=== PATIENT | male | born 1960 | race Caucasian/White ===

== ENCOUNTER 2021-01-07 10:10 | Outpatient (CLI) | payer OTHER, SELFPAY ==
[2021-01-07 10:44] LABS: Hematocrit 50.5 % (42.0-52.0); Hemoglobin 16.5 g/dL (14.0-18.0); Mean Corpuscular HGB Conc 32.7 g/dl (32-36); Mean Corpuscular Volume 82.8 fl (80-100); Mean Platelet Volume 10.4 fl (7.4-10.4); Platelet Count Result 253 k/mm3 (150-375); Red Cell Distribution Width 16.9 % (11.5-14.5); White Blood Count 6.4 K/mm3 (4.5-10.0)
[2021-01-07 10:57] LABS: Alanine Aminotransferase 38 U/L (4-50); Albumin Level 4.4 g/dL (3.5-5.1); Alkaline Phosphatase 69 U/L (38-126); Anion Gap 8 mmol/L (8-16); Aspartate Amino Transferase 37 U/L (17-59); Bilirubin,Total 0.9 mg/dL (0.2-1.3); Blood Urea Nitrogen 28 mg/dL (9-20); Calcium 9.5 mg/dL (8.4-10.2); Carbon Dioxide 29 mmol/L (22-30); Chloride 100 mmol/L (98-107); Cholesterol 126 mg/dL (0-200); Creatine Kinase 110 U/L (55-170); Estimated Glomerular Filt Rate > 60; Glucose 89 mg/dL (65-110); HDL Direct 29 mg/dL; Potassium 4.7 mmol/L (3.4-5.0); Sodium 137 mmol/L (137-145); Triglycerides 107 mg/dL (<150)
[2021-01-07 11:08] LABS: LDL Cholesterol Direct 76 mg/dL
== END 2021-01-07 10:11 | disposition home or self-care (01) ==
LOC: ANHLAB 10:13
PROVIDERS: PCP Family Medicine; Visit Provider Hospitalist
DX: I25.10 Atherosclerotic heart disease of native coronary artery without angina pectoris (principal)
CPT/HCPCS: 36415; 80053; 80061; 82550; 85027

== ENCOUNTER 2021-07-07 12:20 | Emergency (ER) | payer OTHER, SELFPAY ==
--- NOTE | ~2021-07-07 | CT_ITS ---
EXAMINATION: CT orbit BI wo con DATE: 07/07/2021 14:01 INDICATION: Right eye injury. TECHNIQUE: Computed tomography (CT) of the orbits was performed without intravenous contrast. Automat ed exposure control and iterative reconstruction technique were employed. The dose-length product was 137.44 mGy-cm. COMPARISON: None FINDINGS: In the right ocular globe, there is dislocation of the lens. There is a 2 mm calcification in the anterior right ocular globe. There is a 2 mm subcutaneous calcification in right supraorbital region. There is rightward deviation of the nasal septum. No fracture. There is mild mucosal thickeni ng in the paranasal sinuses. IMPRESSION: 1. Lens dislocation in the right ocular globe. Reviewed, dictated and finalized at location A.
[2021-07-07 12:22] VITALS: BP 154/88; PULSE 108; RESP 20; TEMP 36.6; O2SAT 98
--- NOTE | 2021-07-07 13:22 | ED.EYEPROB ---
HPI - Eye Problem General Chief complaint: Eye Problems <Cheko Edmondson, BARTENDER SERVER - Last Filed: 07/07/21 14:23> Stated complaint: HIT IN THE EYE <Cheko Edmondson BARTENDER SERVER - Last Filed: 07/07/21 14:23> Time Seen by Provider: 07/07/21 12:45 <Cheko Edmondson BARTENDER SERVER - Last Filed: 07/07/21 14:23> History of Present Illness HPI Narrative: 60-year-old male presents to the emergency room for evaluation of a right eye injury. 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 On presentation, patient complains of near total vision loss, with photophobia. Patient states he is able to differentiate between light and dark, but everything else appears blurry in the right eye. <Cheko Edmondson, BARTENDER SERVER - Last Filed: 07/07/21 14:23> Related Data Home medications: Home Medications Medication Instructions Recorded Confirmed atorvastatin 80 mg tablet 80 mg PO DAILY 01/28/20 07/05/21 clonazepam 0.5 mg tablet 0.5 mg PO DAILY 01/28/20 07/05/21 metoprolol succinate 25 mg 25 mg PO DAILY 01/28/20 07/05/21 tablet,extended release 24 hr testosterone cypionate 100 mg/mL 100 mg IM WEEKLY ml 01/28/20 07/05/21 intramuscular oil cyclobenzaprine 10 mg tablet 10 mg PO TID 05/24/21 07/05/21 hydrocodone 5 mg-acetaminophen 325 1 tablet PO Q8H PRN 05/24/21 07/05/21 mg tablet nitroglycerin 0.4 mg sublingual 0.4 mg SUBLINGUAL Q5M PRN 05/24/21 07/05/21 tablet omeprazole 40 mg capsule,delayed 40 mg PO DAILY 05/24/21 07/05/21 release rizatriptan 10 mg tablet 10 mg PO ONCE 05/24/21 07/05/21 scopolamine base 1 mg over 3 days 1 patch TRANSDERMAL Q3D PRN 05/24/21 07/05/21 transdermal patch valacyclovir 1 gram tablet 1,000 mg PO DAILY 05/24/21 07/05/21 <Cheko Edmondson APRN - Last Filed: 07/07/21 14:23> Allergies/adverse reactions: Allergies Allergy/AdvReac Type Severity Reaction Status Date / Time niacin Allergy Intermediate unknown Verified 07/07/21 12:31 <Cheko Edmondson APRN - Last Filed: 07/07/21 14:23> Review of Systems Review of Systems: CONSTITUTIONAL: Denies fever, chills, or sweats. EYES: Right eye pain, visual changes ENT: Denies rhinorrhea, congestion, sore throat, or otalgia. CARDIOVASCULAR: Denies chest pain, palpitations, or edema. RESPIRATORY: Denies cough or dyspnea. GASTROINTESTINAL: Denies abdominal pain, nausea, vomiting, or diarrhea. GENITOURINARY: Denies dysuria or hematuria. SKIN: Denies rash or itching. MUSCULOSKELETAL: Denies back pain, joint pain, or myalgia. NEUROLOGIC: Denies headache, numbness, dizziness, or weakness. PSYCHIATRIC: Denies anxiety or depression. <Cheko Edmondson APRN - Last Filed: 07/07/21 14:23> [facility] Past Medical History Medical History: Medical History BMI 36.0-36.9,adult Degenerative arthritis of knee, bilateral Osteoarthritis of right knee <Cheko Edmondson APRN - Last Filed: 07/07/21 14:23> Surgical History Surgical History: Surgical History H/O knee surgery scope, waiting on records, Dr. 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 HEAD: Normocephal
[2021-07-07] MEDS: FLUORESCEIN SOD 1 MG/STRIP (13:40)
[2021-07-07] MEDS: TETRACAINE HCL 0.5% OPHTH SOLN 4 ML BTL 1 DROP ×2 (13:41)
--- NOTE | 2021-07-07 13:41 | PC.NURSE ---
patient placed in a dark room and gauze placed over right eye, secured with paper tape.
--- NOTE | 2021-07-07 14:17 | PC.NURSE ---
patient refusing ambulance transport to [facility]. ok with Dr. Pelaez for POV
[2021-07-07 14:25] VITALS: BP 159/84; PULSE 104; RESP 18; O2SAT 98
== END 2021-07-07 14:46 | disposition short-term general hospital (02) ==
PROVIDERS: Emergency Provider Nurse Practitioner Family; PCP Family Medicine
DX: S05.11XA Contusion of eyeball and orbital tissues, right eye, initial encounter (principal); M17.0 Bilateral primary osteoarthritis of knee; Z87.891 Personal history of nicotine dependence; W20.8XXA Other cause of strike by thrown, projected or falling object, initial encounter
CPT/HCPCS: 70480; 99284

== ENCOUNTER 2021-07-19 18:58 | Emergency (ER) | payer OTHER, SELFPAY ==
[2021-07-19] VITALS (8 sets, daily range): BP systolic 166–187; BP diastolic 100–111; PULSE 81–93; RESP 12–18; TEMP 36.6; O2SAT 95
--- NOTE | 2021-07-19 19:32 | ED.EYEPROB ---
HPI - Eye Problem General Chief complaint: Eye Problems Stated complaint: right eye pain Time Seen by Provider: 07/19/21 19:24 History of Present Illness HPI Narrative: Patient is as 60 y/o CM who p/w right eye pain and TRUJILLO. Seen here 07/07/21 s/p trauma to the eye. Had a hyphema. Was evaluated at [facility]. Patient can sense light but unable to see otherwise since the injury. Has f/u with retina specialist because they were unable to see the retina. Reports his cornea is from the iris. No open globe. Pt reports intermittent TRUJILLO since the injury. Right side behind the eye. Hurts his forehead as well. Called telecommunications field engineer today, thinks patient poorly communicated eye symptoms. Patient has been taking tobradex, cyclogyl, prednisolone, moxifloxacin, and oflaxacin. reports no change in the appearance of the eye. The pupil is irregular and wide, the sclera is injected, the pupil has also looked cloudy. Related Data Home Medications Medication Instructions Recorded Confirmed atorvastatin 80 mg tablet 80 mg PO DAILY 01/28/20 07/05/21 clonazepam 0.5 mg tablet 0.5 mg PO DAILY 01/28/20 07/05/21 metoprolol succinate 25 mg 25 mg PO DAILY 01/28/20 07/05/21 tablet,extended release 24 hr testosterone cypionate 100 mg/mL 100 mg IM WEEKLY weekly 01/28/20 07/05/21 intramuscular oil (Depo-Testosterone) cyclobenzaprine 10 mg tablet 10 mg PO TID 05/24/21 07/05/21 hydrocodone 5 mg-acetaminophen 325 1 tablet PO Q8H PRN 05/24/21 07/05/21 mg tablet nitroglycerin 0.4 mg sublingual 0.4 mg sublingual Q5M PRN 05/24/21 07/05/21 tablet omeprazole 40 mg capsule,delayed 40 mg PO DAILY 05/24/21 07/05/21 release rizatriptan 10 mg tablet 10 mg PO ONCE 05/24/21 07/05/21 scopolamine base 1 mg over 3 days 1 patch transdermal Q3D PRN 05/24/21 07/05/21 transdermal patch (Transderm-Scop) valacyclovir 1 gram tablet 1,000 mg PO DAILY 05/24/21 07/05/21 (Valtrex) cyclopentolate 1 % RIGHT EYE BID 07/19/21 07/19/21 moxifloxacin 0.5 % RIGHT EYE QID 07/19/21 07/19/21 prednisolone acetate 1 % RIGHT EYE QID 07/19/21 07/19/21 tobramycin-dexamethasone 1 drp RIGHT EYE QID 07/19/21 07/19/21 Allergies Allergy/AdvReac Type Severity Reaction Status Date / Time niacin Allergy Intermediate unknown Verified 07/19/21 19:15 Review of Systems Review of Systems: All systems reviewed & are unremarkable except as noted in HPI and below Constitutional: Constitutional: Denies chills and Denies fever(s) Eyes: Eyes: Denies change in vision and Denies photophobia Comments: right eye pain with tearing. Gastrointestinal: Gastrointestinal: Denies nausea and Denies vomiting Neurologic: Reports headache(s) and Denies numbness PMFSH Past Medical History Medical History BMI 36.0-36.9,adult Degenerative arthritis of knee, bilateral Osteoarthritis of right knee Surgical History Surgical History H/O knee surgery scope, waiting on records, Dr. 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 HEAD: Normocephalic, atraumatic. EYES: Right eye exam with a dilated pupil that is hazy. Sclera injected. Right eye intraocular pressure 55 mmHg. ENT: Mucous membranes moist. EXTREMITIES: Normal range of motion. No edema. SKIN: Warm, dry, no rash. NEURO: Alert and oriented x3. PSYCH: Normal mood and affect. Course Course Emergency Course: Contacted ophtha
[2021-07-19] MEDS: MORPHINE SULFATE (*CRX) 4 MG/ML INJ IV PUSH (19:37)
[2021-07-19] MEDS: HYDROmorphone HCL INJ (*CRX) 1 MG/ML SYR IV PUSH (19:57)
== END 2021-07-19 20:36 | disposition short-term general hospital (02) ==
PROVIDERS: Emergency Provider Emergency Medicine; PCP Family Medicine
DX: H40.9 Unspecified glaucoma (principal); Z87.891 Personal history of nicotine dependence
CPT/HCPCS: 96374; 96375; 99284; J1170; J2270

== ENCOUNTER → 2021-11-09 07:52 | Outpatient (CLI) | payer OTHER, SELFPAY ==
--- NOTE | ~2021-11-09 | MR_ITS ---
EXAMINATION: MR knee RT wo con DATE: 11/09/2021 08:28 INDICATION: Right knee pain TECHNIQUE: Magnetic resonance imaging (MRI) of the right knee was performed without intravenous contr ast. Sequences included axial PD-weighted FS FSE, coronal PD-weighted FSE and PD-weighted FS FSE, sag ittal PD-weighted FSE, and sagittal T2-weighted FS FSE. COMPARISON: 05/20/2021. FINDINGS: Medial compartment: Complex tear of the medial meniscal body, with vertical and apical components, medial displacement of the meniscus, with displacement of meniscal tissue into both the superior and inferior aspects of th e medial joint recess. Full-thickness cartilage loss in the medial compartment. 5 mm osteochondral le pepe on the medial femoral condyle with considerable surrounding edema. Mild osteophytosis. Lateral compartment: Meniscus intact. Partial-thickness cartilage signal abnormality. Moderate osteophytosis. Patellofemoral compartment: Near full-thickness cartilage loss on the lateral facet. Moderate osteophytosis. Retinacula intact. Ligaments and tendons: Mild thickening of the proximal fibers of the MCL, likely mild chronic partial tear. ACL, PCL, and LC L are intact. Fluid: Moderate volume joint fluid. Numerous loose bodies present in the suprapatellar recess as well as pos terior joint recesses. Cystic collection, possibly associated with the articulation of the fibular he ad, with loose bodies. Osseous/other: Medial tibial plateau sclerosis. Proximal tibial subchondral cysts. IMPRESSION: 1. Complex tear of the body of the medial meniscus, with meniscal extrusion, and displacement of meni scal tissue into the superior and inferior joint recesses. 2. Tricompartmental osteophytosis, severe in the medial compartment, where there is full-thickness ca rtilage loss, an osteochondral lesion, and bone marrow edema. 3. Moderate joint effusion with numerous loose bodies. Reviewed, dictated and finalized at location K. IMPRESSION: 1. Complex tear of the body of the medial meniscus, with meniscal extrusion, an d displacement of meniscal tissue into the superior and inferior joint recesses . 2. Tricompartmental osteophytosis, severe in the medial compartment, where ther e is full-thickness cartilage loss, an osteochondral lesion, and bone marrow ed kenia. 3. Moderate joint effusion with numerous loose bodies.
== END ==
PROVIDERS: PCP Orthopaedic Surgery; Visit Provider Orthopaedic Surgery
DX: M17.11 Unilateral primary osteoarthritis, right knee (principal); S83.231A Complex tear of medial meniscus, current injury, right knee, initial encounter; X58.XXXA Exposure to other specified factors, initial encounter
CPT/HCPCS: 73721

== ENCOUNTER 2022-05-01 07:59 | Outpatient (CLI) | payer OTHER, SELFPAY ==
[2022-05-01 09:57] LABS: Basophils Percent Auto 0.6 % (0.2-1.2); Eosinophils Absolute Auto 0.1 K/mm3 (0-0.3); Hematocrit 50.6 % (42.0-52.0); Hemoglobin 16.8 g/dL (14.0-18.0); Immature Granulocyte Absolute 0.05 K/mm3 (0.00-0.031); Immature Granulocyte Percent A 0.8 % (0-0.5); Lymphocytes Percent Auto 29.1 % (18.3-44.2); Mean Corpuscular HGB Conc 33.2 g/dl (32-36); Mean Corpuscular Volume 81.4 fl (80-100); Mean Platelet Volume 10.2 fl (7.4-10.4); Monocytes Absolute Auto 0.8 K/mm3 (0.1-0.6); Neutrophils Absolute Auto 3.6 K/mm3 (1.3-6.7); Neutrophils Percent Auto 55.5 % (45.5-73.1); Platelet Count Result 233 k/mm3 (150-375); Red Blood Count 6.22 M/mm3 (4.6-6.20); Red Cell Distribution Width 14.6 % (11.5-14.5); White Blood Count 6.5 K/mm3 (4.5-10.0)
[2022-05-01 10:06] LABS: Urine Cotinine NEGATIVE
[2022-05-01 10:08] LABS: Hemoglobin A1C 5.7 % (<5.7)
[2022-05-01 10:09] LABS: Albumin Level 4.4 g/dL (3.5-5.1); Estimated Glomerular Filt Rate > 60; Glucose 97 mg/dL (65-110)
== END 2022-05-01 08:00 | disposition home or self-care (01) ==
PROVIDERS: PCP Family Medicine; Visit Provider Orthopaedic Surgery
DX: M17.11 Unilateral primary osteoarthritis, right knee (principal); Z01.818 Encounter for other preprocedural examination
CPT/HCPCS: 80307; 82040; 82565; 82947; 83036; 85025; 86850; 86900; 86901; 87081

== ENCOUNTER 2022-05-08 01:31 | Day surgery (SDC) | payer OTHER, SELFPAY ==
--- NOTE | 2022-05-01 07:42 | PC.NURSE ---
PRE-OP INSTRUCTIONS, PLEASE READ CAREFULLY Report to the Outpatient Waiting Room, entrance under the green pavilion located off [facility], at time _0830_ on date _05/08/22_. Planned Procedure Time: _1030_. PACK A SMALL OVERNIGHT BAG AND LEAVE IN THE CAR ALONG WITH YOUR WALKER Time changes happen often and if your time is changed the preop area will call you the afternoon before. - You and your visitor will be asked to self-screen and do not enter if you have any COVID symptoms. - Only one visitor is requested with a max of two and NO children visitors are allowed at this time. - The patient visitor may be requested to leave or wait in car when not with patient due to distancing restrictions. - A mask is optional within the hospital at this time. -VISITING HOURS 8AM-8PM Patients may have clear liquids (water, carbonated beverages, clear teas, apple juice) until 3 hours prior to surgery (0730 AM) with a maximum of 20 ounces. - No food from midnight until time of surgery Take the following medications with a SIP of water the morning of surgery: _METOPROLOL, & NITROGLYCERIN, RIZATRIPTAN, PAIN MED IF NEEDED_ DO NOT STOP ANY OF YOUR OTHER PRESCRIPTION MEDICATIONS PRIOR TO SURGERY ?EXCEPT THE FOLLOWING Medications to discontinue _MELOXICAM PER DR. ROONEY'S INSTRUCTIONS_ Medications to discontinue per ANESTHESIA - _MULTIVITAMIN 3 DAYS PRIOR TO SURGERY, Date to take last dose 05/04/22_ Please no make-up, nail wolof, hairspray, perfume, deodorant, or body powder the day of surgery. No jewelry (including any body piercings) or valuables the day of surgery, leave them at home. Please take a shower or bath the night before, or the morning of, surgery with an antibacterial soap. Wear comfortable, loose fitting clothing. - Jewelry must be removed prior to entering the operating room. Rings and piercings that are not removed may be cut off. - The hospital will not accept responsibility for valuables. - Please leave all valuables, including medications, at home the day of surgery. If you are going home after surgery, a licensed day haul or farm charter bus driver must drive you home. - NO public transportation without another adult if you receive anesthesia. - We recommend that an adult stay with you for 24 hours following discharge. - We also recommend that you do not drive, make important decision, drink alcoholic beverages, or take any drugs that were not prescribed by your health care provider for at least 24 hours after your discharge time. Follow any additional instructions given to you from your surgeon. If you or anyone in your household have experienced Covid symptoms in the past week, please notify your surgeon or the nurse liaison at the phone number below for possible testing. Instructions given to _PATIENT_and asked if any additional questions and then verbalized understanding. Patient advised to call surgeon office or pre surgery nurse liaison [phone] if any additional questions.
[2022-05-01 08:34] VITALS: BP 142/90; PULSE 78; RESP 20; TEMP 37.1; O2SAT 99; BMI 36.8
[2022-05-08] VITALS (13 sets, daily range): BP systolic 134–166; BP diastolic 80–99; PULSE 78–105; RESP 10–18; TEMP 36.1–37.5; O2SAT 93–100
--- NOTE | ~2022-05-08 | XR_ITS ---
EXAMINATION: [id number] DATE: 05/08/2022 10:38 INDICATION: Postoperative evaluation following right total knee arthroplasty. TECHNIQUE: Anteroposterior and lateral views of the right knee were obtained. COMPARISON: None. FINDINGS: Right total knee arthroplasty with patellar resurfacing appears well seated and in near anatomic alig nment. No fractures identified. Expected postoperative subcutaneous and intra-articular gas. IMPRESSION: 1. Right total knee arthroplasty, negative for postoperative purposes. Reviewed, dictated and finalized at location A.
[2022-05-08] MEDS: ACETAMINOPHEN 500 MG TABLET 1000 MG PO (06:43)
[2022-05-08] MEDS: TRANEXAMIC ACID 1,000MG/ISO100 1,000 MG/100 ML BAG 200 MG IVPB (07:15)
[2022-05-08] MEDS: LACTATED RINGERS 1,000 ML 30 ML IV CONT ×2 (07:15→10:06)
--- NOTE | 2022-05-08 07:17 | WPDHPUPDATE1 ---
History and Physical Update Update Date/Time: 05/08/22 07:17 History and Physical has been reviewed, including an updated exam of the patient. There are NO changes in the patient's condition. Risks, benefits, and alternatives have been discussed and questions answered. Patient agrees to proceed with procedure.
--- NOTE | 2022-05-08 07:23 | WPDANESEPPF ---
Anes - Initial Pre Proc Eval Procedure: Operation Date: 05/08/22 07:30 Proposed Procedures p Right Total Knee Arthroplasty - Aly Mary MD Date/Time: 05/08/22 07:23 Surgeon: Aly Mary MD Pre Op Diagnosis: oa of right knee Patient Data Age: 61 Gender: M Height: 1.75 m Weight: 112 kg Last Vital Signs Temp 36.4 C L 05/08/22 06:47 Pulse 78 05/08/22 06:47 Resp 16 05/08/22 06:47 BP 159/93 H 05/08/22 06:47 Pulse Ox 96 05/08/22 06:47 O2 Del Method Room Air 05/08/22 06:47 Allergies Allergy/AdvReac Type Severity Reaction Status Date / Time niacin Allergy Intermediate ITCHEY, Verified 05/08/22 06:30 TINGLIEY, FLUSHED RED HEAD TO TOE Home Medications Medication Instructions Recorded Confirmed Type atorvastatin 80 mg tablet 80 mg PO DAILY 01/28/20 05/08/22 History clonazepam 0.5 mg tablet 1.5 mg PO HS 01/28/20 05/08/22 History metoprolol succinate 25 mg 25 mg PO DAILY 01/28/20 05/08/22 History tablet,extended release 24 hr testosterone cypionate 100 mg/mL See Rx Instructions .Route .COMPLEX 01/28/20 05/08/22 History intramuscular oil (Depo-Testosterone) hydrocodone 5 mg-acetaminophen 325 1 tablet PO Q8H PRN Pain 05/24/21 05/02/22 History mg tablet nitroglycerin 0.4 mg sublingual 0.4 mg sublingual Q5M PRN Chest 05/24/21 05/08/22 History tablet Pain omeprazole 40 mg capsule,delayed 40 mg PO DAILY 05/24/21 05/08/22 History release rizatriptan 10 mg tablet 10 mg PO ONCE PRN Migraine Headache 05/24/21 05/02/22 History scopolamine base 1 mg over 3 days 1 patch transdermal Q3D PRN Nausea 05/24/21 05/02/22 History transdermal patch (Transderm-Scop) valacyclovir 1 gram tablet 1,000 mg PO DAILY PRN Cold Sores 05/24/21 05/02/22 History (Valtrex) meloxicam 15 mg tablet 15 mg PO DAILY PAIN 01/25/22 05/08/22 History pregabalin 75 mg capsule (Lyrica) 150 mg PO HS 01/25/22 05/08/22 History acetaminophen 500 mg tablet 1,000 mg PO QID PRN Pain 05/01/22 05/08/22 History ascorbic acid (vitamin C) 1,000 mg 1 g PO DAILY 05/01/22 05/08/22 History tablet (Vitamin C) cyclobenzaprine 10 mg tablet 10 mg TID PRN Muscle Spasm 05/01/22 05/08/22 History multivitamin 1 tablet PO DAILY 05/01/22 05/08/22 History rivaroxaban 10 mg tablet (Xarelto) 10 mg PO DAILY PE prophylaxis s/p 05/02/22 05/08/22 Rx joint replacement surgery 14 days #14 tabs Patient hx anesthesia problems: none Family hx anesthesia problems: none Results Review: All pre-operative results and documents have been reviewed as part of the pre-operative evaluation. [facility] Past Medical History Medical History BMI 36.0-36.9,adult Degenerative arthritis of knee, bilateral Osteoarthritis of right knee Surgical History Surgical History H/O eye surgery right lens implant after traumatic injury July 2021 H/O knee surgery scope, waiting on records, Dr. Mary Family History Family History Mother Family history of diabetes mellitus in first degree relative Diabetes mellitus Cerebrovascular accident Social History Social History Smoking packs per day: 0.5 Smoking cigarettes per day: 10.0 Years smoked: 4 Smoking pack-years: 2.00 Smoking status: Former smoker Tobacco type: cigarettes Second hand tobacco smoke exposure: No Additional smoking assessment comments: PT STAETS QUIT SMOKING 7TH GRADE, DENIES FORMS OF TOBACCO USE Alcohol intake: never Substance use: never Substance use type: does not use Living arrangements: with family Occupation/Education: occupation 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
[2022-05-08] MEDS: ceFAZolin 2 GM/D5W 50 ML 2 GM/50 ML BAG IVPB ×3 (07:28→22:03)
[2022-05-08] MEDS: GENTAMICIN BONE CEMENT REFOBACIN 1 EACH TOPICAL (08:07)
--- NOTE | 2022-05-08 10:09 | P.OP_ITS ---
Procedure Note - Detailed Date of Procedure 05/08/22 Pre-op Diagnosis oa of right knee Post-op Diagnosis Same Procedure Performed Right total knee replacement Surgeon Aly Mary MD [employer] General Supervisor Debbie Howe Anesthesia General Description of Procedure The patient was identified and proper site identified. The patient was taken to the operating room and transferred to the OR table positioning supine taking care to pad the torso and extremities. After general anesthetic induction and intubation a nonsterile tourniquet was placed high on the right thigh. The right lower extremity was prepped and draped in the usual sterile fashion. The extremity was exsanguinated and with the knee flexed tourniquet was inflated to 300 mmHg remaining up for approximately 70 minutes. An anterior midline incision was made and a modified medial parapatellar approach was used. Infra and suprapatellar fat pads were excised. Patella was resected leaving 15 mm thickness and prepared for the 31 round three peg component. Using the intramedullary guide the distal femur was cut in the proper orientation for the size 70 femoral component. Using the extramedullary guide the tibia was cut perpendicular to the long axis protecting collateral ligaments and popliteal structures. It was sized to a 75. Flexion and extension gaps were balanced. Trial reduction was undertaken and the weight-bearing line was noted to passed through the center of the joint. Proximal tibia was drilled and punched in the proper orientation for the real component. Trial components were removed. The bone surfaces were washed with pulsatile lavage and dried. The real components were cemented simultaneously. The knee was held in extension and the patella held clamped until the cement had cured. Excess cement was removed from the joint. After trialing it was determined that the 12 mm insert gave full range of motion from 0-120 degrees of flexion and the patella tracked in the femoral groove with no lift-off. After final lavage the joint the real size 12 poly insert was placed and secured with a locking bar. A Betadine and saline wash was placed into the wound and allowed to sit for approximately 3 minutes and then evacuated. Periarticular tissues were infiltrated with 60 cc of the arthroplasty solution. Surgicel powder was applied into the wound during the closure. The extensor mechanism was repaired with #2 Vicryl suture and 0 looped PDS suture. Subcu was reapproximated with 3-0 Monocryl, 2-0 Quill and tissue adhesive for the skin. A sterile dressing was applied. He tolerated the procedure well, was awakened and extubated, transferred to the bed and was taken to recovery area in stable condition. There were no known intraoperative complications. Perioperative antibiotics were administered. Estimated Blood Loss 200 Tourniquet Time 70 Drains No Packing No Pathology None sent Complications No immediate complications Condition Stable Disposition PACU [facility] Billing Surgery - Charge Forward: Surgery Billing ([id number])
[2022-05-08] MEDS: HYDROmorphone HCL INJ (*CRX) 1 MG/ML SYR 0.5 MG IV PUSH ×4 (10:47→11:18)
[2022-05-08] MEDS: LABETALOL HCL INJ 100 MG/20 ML VIAL 10 MG IV PUSH (11:35)
--- NOTE | 2022-05-08 11:48 | ADMGEN ---
This patient, Gurjit Angel, was admitted to 3 [facility] Surg Room 319-01. Patient/family oriented to hospital policies and general routines including ID bracelet, bed and alarms, visiting hours, pain management, procedures, bathroom and other care routines, personal items, smoking policy, room service/diet, and visiting hours. Information on how to activate the Rapid Response Team has been discussed. Patient/Family are encouraged to report perceived risks to care and to ask questions if they do not understand what they are told or what they should do.
[2022-05-08] MEDS: ONDANSETRON INJ 4 MG/2 ML VIAL IV PUSH ×3 (12:45→22:06)
[2022-05-08] MEDS: oxyCODONE/ACETAMINOPHEN (*CRX) 5-325 MG TABLET 1 TABLET PO ×3 (13:41→22:01)
--- NOTE | 2022-05-08 14:18 | PM.IMCN ---
Assessment and Plan Assessment and plan (1) S/P total knee arthroplasty: Code(s): Z96.659 - Presence of unspecified artificial knee joint Status: Acute Assessment and Plan: Postop care per orthopedic physician PT OT per orthopedic physician DVT prophylaxis per orthopedic physician the patient is on Xarelto Analgesics per orthopedic physician. The patient is on oxycodone however the patient is quite nauseated. He is on Zofran and scopolamine patch for the nausea. His IV fluids were restarted due to the nausea. (2) Chronic GERD: Code(s): K21.9 - Gastro-esophageal reflux disease without esophagitis Status: Acute Assessment and Plan: Patient will need IV Pepcid at this time (3) Hypertension: Code(s): I10 - Essential (primary) hypertension Status: Acute Assessment and Plan: Continue with metoprolol (4) Anxiety: Code(s): F41.9 - Anxiety disorder, unspecified Status: Acute Assessment and Plan: The patient had been on clonazepam. I placed him on IV Ativan as the patient was nauseated Plan Thank you for allowing us to see this patient. We will continue to co- manage the patient. Please do not hesitate to notify us if needed. HPI Data of Consult Consult date: 05/08/22 Requesting Physician: Aly Mary MD Primary Care Provider: Russell Patterson, Consult Narrative Narrative: Gurjit Angel is a 61 year old male who continued to have anterior, medial, and posterior knee pain to the right knee. The pain was worse with activity. The patient has failed outpatient conservative treatment options. The patient has had arthroscopic surgeries in the past. The patient had a right total knee arthroplasty today per Dr. Mary. Please see operative note. Estimated blood loss is 200 mL. The patient was sitting up in the chair when I saw him he was complaining a postop nausea. A scopolamine patch had been placed. The hospitalist group add been asked to consult for medical management on the date of service of 05/08/2022. Review of Systems Review of Systems: All systems reviewed & are unremarkable except as noted in HPI and below Constitutional: Constitutional: Reports as per HPI and Reports no additional constitutional complaints Eyes: Eyes: Reports as per HPI and Reports no additional eye complaints ENT: Reports system reviewed and no additional complaints, except as documented and Reports Normal hearing present Cardiovascular: Cardiovascular: Reports no additional cardiovascular complaints Respiratory: Respiratory: Reports no additional respiratory complaints and Reports no additional respiratory complaints Gastrointestinal: Gastrointestinal: Reports as per HPI and Reports no additional gastrointestinal complaints Musculoskeletal: Musculoskeletal: Reports no additional musculoskeletal complaints Integumentary/Breasts: Skin/Breast: Reports system reviewed and no additional complaints, except as docu and Reports as per HPI Neurologic: Reports system reviewed and no additional complaints, except as documented, Reports as per HPI and Reports Normal hearing present Psychiatric: Psychiatric: Reports no additional psychiatric complaints and Reports as per HPI Endocrine: Endocrine: Reports no additional endocrine complaints Hematologic/Lymphatic: Hematologic/Lymphatic: Reports no additional hematologic/lymphatic complaints Allergic/Immunologic: Allergic/Immunologic: Reports no additional allergic/immunologic complaints PMFSH Past Medical History Medical History Anxiety BMI 36.0-36.9,adult Chronic GERD Degenerative arthritis of knee, bilateral Hypertension Osteoarthritis of right knee Surgical History Surgical History (Updated 05/08/22 @ 18:57 by Emerita Franz NP) H/O eye surgery right lens implant after traumatic injury July 2021 H/O heart artery stent H/O knee surgery scope,
[2022-05-08] MEDS: SCOPOLAMINE 1.5 MG PATCH 1 MG TRANSDERM (14:27)
[2022-05-08] MEDS: SODIUM CHLORIDE 0.9% IV 1,000 ML 125 ML IV CONT (15:14)
[2022-05-08] MEDS: MORPHINE SULFATE (*CRX) 4 MG/ML INJ 3 MG IV PUSH ×2 (18:08→21:58)
[2022-05-08] MEDS: PREGABALIN (*CRX) 75 MG CAPSULE 150 MG PO (22:00)
[2022-05-08] MEDS: FAMOTIDINE 20 MG/2 ML VIAL IV PUSH (22:02)
[2022-05-09 00:43] VITALS: BP 124/79; PULSE 110; RESP 19; TEMP 36.5; O2SAT 95
[2022-05-09] MEDS: oxyCODONE/ACETAMINOPHEN (*CRX) 5-325 MG TABLET 1 TABLET PO ×2 (04:47→08:49)
[2022-05-09 05:25] VITALS: BP 151/89; PULSE 96; RESP 18; TEMP 36.4; O2SAT 100
[2022-05-09 06:34] LABS: Basophils Percent Auto 0.1 % (0.2-1.2); Hematocrit 40.2 % (42.0-52.0); Hemoglobin 13.2 g/dL (14.0-18.0); Immature Granulocyte Absolute 0.04 K/mm3 (0.00-0.031); Immature Granulocyte Percent A 0.3 % (0-0.5); Lymphocytes Absolute Auto 1.01 K/mm3 (0.9-3.2); Lymphocytes Percent Auto 8.1 % (18.3-44.2); Mean Corpuscular HGB Conc 32.8 g/dl (32-36); Mean Corpuscular Hemoglobin 27.2 pg (26-34); Mean Corpuscular Volume 82.7 fl (80-100); Mean Platelet Volume 10.8 fl (7.4-10.4); Monocytes Absolute Auto 1.5 K/mm3 (0.1-0.6); Neutrophils Absolute Auto 9.9 K/mm3 (1.3-6.7); Neutrophils Percent Auto 79.5 % (45.5-73.1); Platelet Count Result 207 k/mm3 (150-375); Red Blood Count 4.86 M/mm3 (4.6-6.20); White Blood Count 12.4 K/mm3 (4.5-10.0)
[2022-05-09 06:47] LABS: Alanine Aminotransferase 55 U/L (6-50); Albumin Level 3.5 g/dL (3.5-5.1); Alkaline Phosphatase 66 U/L (38-126); Anion Gap 5 mmol/L (8-16); Aspartate Amino Transferase 37 U/L (17-59); Bilirubin,Total 0.6 mg/dL (0.2-1.3); Blood Urea Nitrogen 17 mg/dL (9-20); Calcium 7.9 mg/dL (8.4-10.2); Carbon Dioxide 26 mmol/L (22-30); Chloride 106 mmol/L (98-107); Estimated CRCL calculation 104 ml/min; Estimated Glomerular Filt Rate > 60; Glucose 130 mg/dL (65-110); Lipase 37 U/L (23-300); Magnesium 1.9 mg/dL (1.6-2.3); Potassium 3.7 mmol/L (3.4-5.0); Sodium 137 mmol/L (137-145)
[2022-05-09] MEDS: ceFAZolin 2 GM/D5W 50 ML 2 GM/50 ML BAG IVPB (07:11)
[2022-05-09 07:36] LABS: Thyroid Stimulating Hormone Reflex 0.992 uIU/mL (0.465-4.68)
--- NOTE | 2022-05-09 07:41 | WPDANESPN ---
Anes - Prog Note Post-Op Date/Time: 05/09/22 07:41 Cardiovascular status: normal Respiratory status: normal Airway patency: baseline Mental status: baseline Post-Op hydration status: normal Vital Signs: Last Vital Signs Temp 36.4 C L 05/09/22 05:25 Pulse 96 05/09/22 05:25 Resp 18 05/09/22 05:25 BP 151/89 H 05/09/22 05:25 Pulse Ox 100 05/09/22 05:25 O2 Del Method Room Air 05/08/22 13:31 O2 Flow Rate 2 05/08/22 11:35 Pain Score (VAS): 03/31 I/O: Intake & Output 05/08/22 05/08/22 05/09/22 15:59 23:59 07:59 Intake Total 818 167 5866 Output Total 400 Balance 400 -180 1800 Laboratory Tests 05/09/22 06:14 05/09/22 06:14 05/09/22 05/09/22 05/09/22 06:14 06:14 06:14 WBC 12.4 H RBC 4.86 Hgb 13.2 L D Hct 40.2 L MCV 82.7 MCH 27.2 MCHC 32.8 RDW 15.0 H Plt Count 207 MPV 10.8 H Immature Gran % (Auto) 0.3 Neut % (Auto) 79.5 H Lymph % (Auto) 8.1 L [place] % (Auto) 12.0 H Eos % (Auto) 0.0 Baso % (Auto) 0.1 L Lymph # (Auto) 1.01 [place] # (Auto) 1.5 H Eos # (Auto) 0.0 Baso # (Auto) 0.0 Abs Immat Gran (auto) 0.04 H Absolute Neuts (auto) 9.9 H Absolute Nucleated RBC 0.0 Nucleated RBC % 0.0 Sodium 137 Potassium 3.7 Chloride 106 Carbon Dioxide 26 Anion Gap 5 L BUN 17 D Creatinine 0.80 Estim Creat Clear Calc 104 Estimated GFR > 60 Glucose 130 H Lactic Acid 2.0 Calcium 7.9 L Magnesium 1.9 Total Bilirubin 0.6 AST 37 ALT 55 H Alkaline Phosphatase 66 Total Protein 6.0 L Albumin 3.5 Lipase 37 TSH (Reflex) 05/09/22 06:14 WBC RBC Hgb Hct MCV MCH MCHC RDW Plt Count MPV Immature Gran % (Auto) Neut % (Auto) Lymph % (Auto) [place] % (Auto) Eos % (Auto) Baso % (Auto) Lymph # (Auto) [place] # (Auto) Eos # (Auto) Baso # (Auto) Abs Immat Gran (auto) Absolute Neuts (auto) Absolute Nucleated RBC Nucleated RBC % Sodium Potassium Chloride Carbon Dioxide Anion Gap BUN Creatinine Estim Creat Clear Calc Estimated GFR Glucose Lactic Acid Calcium Magnesium Total Bilirubin AST ALT Alkaline Phosphatase Total Protein Albumin Lipase TSH (Reflex) 0.992 Post-procedural complaints: none Patient Feedback: Patient satisfied with anesthetic care.
--- NOTE | 2022-05-09 07:42 | PC.NURSE ---
PT [place], exhibited anxiety with all care. Explanation of care , plan of care given. Pain meds, zofran, HOB elevated- no further N/V tolerated liquids, food. SL IVF 0200. Refused one dose of oxy. Up to bathroom- void, not measured, refused to use urinal. use of gait belt, walker - tolerated well. ice to r knee neuros intact all shift.. changed r knee drsg . Pt states poor sleep during night. Monitor.
[2022-05-09] MEDS: SENNA/DOCUSATE SODIUM TABLET 2 TAB PO (08:48)
[2022-05-09] MEDS: MULTIVITAMINS THERAPEUTIC TAB (*BKC) 1 TABLET PO (08:49)
[2022-05-09] MEDS: MELOXICAM 7.5 MG TABLET 15 MG PO (08:49)
[2022-05-09] MEDS: ATORVASTATIN 40 MG TABLET 80 MG PO (08:50)
[2022-05-09 08:51] VITALS: PULSE 96
[2022-05-09] MEDS: RIVAROXABAN 10 MG TABLET PO (08:51)
[2022-05-09] MEDS: polyethylene glycoL 3350 17 GM POWD.PACK PO (08:51)
[2022-05-09] MEDS: ASCORBIC ACID 500 MG TABLET 1000 MG PO (08:51)
[2022-05-09] MEDS: METOPROLOL SUCCINATE EXT REL 25 MG TABCR PO (08:51)
[2022-05-09] MEDS: FAMOTIDINE 20 MG/2 ML VIAL IV PUSH (08:52)
--- NOTE | 2022-05-09 08:52 | PM.DS ---
DS: Admitting Diagnosis Discharge Date 05/09/2022 Admitting Diagnosis Right knee osteoarthritis DS: Discharge Diagnosis Discharge Diagnosis (1) S/P total knee arthroplasty: Code(s): Z96.659 - Presence of unspecified artificial knee joint Status: Acute Plan 61-year-old male postop day 1 after right total knee. He was struggling with a bit of nausea and vomiting yesterday. Is doing much better this morning and had oxycodone this morning for pain without issue. Plan to be seen by therapy again today prior to discharge. We will also call him in a prescription of Zofran for nausea at home. He would like to be discharged today. He has a scheduled follow-up appointment in our office in 2 weeks. He will call our office with any further questions or concerns prior to that scheduled follow-up. DS: Summary Hospital Course Reason for hospitalization: Observation after outpatient procedure Hospital Course: 61-year-old male admitted for observation after right total knee arthroplasty. He did have some nausea and vomiting yesterday when attempting to get more active. Doing much better this morning. He will continue to mobilize with his walker today prior to discharge. Status at Discharge Functional status at discharge: uses cane/walker Overall status at discharge: patient is progressing back to baseline Time Spent with Patient Time attestation: Total time spent providing and/or coordinating discharge services: Time spent: Less than 30 minutes Exam Const: General: comfortable and no acute distress HENMT: Mouth: Yes moist mucous membranes Resp: Effort & Inspection: normal respiratory effort GI: Inspection: non-distended Skin: General skin exam: normal color and no erythema Neuro: Sensory Exam: normal sensation Extrem: Other: Exam of the right lower extremity demonstrates a clean and dry island dressing over the surgical incision of the right knee. No erythema. No sign of drainage. He is able to plantar and dorsiflex the foot without difficulty. Calves negative. Neurovascular status right lower extremity intact. Psych: Mental Status: mental status grossly normal DS: Data Data Completed and Pending Labs on day of discharge: Labs from last 24 hours 05/09/22 05/09/22 05/09/22 06:14 06:14 06:14 WBC RBC Hgb Hct MCV MCH MCHC RDW Plt Count MPV Immature Gran % (Auto) Neut % (Auto) Lymph % (Auto) [place] % (Auto) Eos % (Auto) Baso % (Auto) Lymph # (Auto) [place] # (Auto) Eos # (Auto) Baso # (Auto) Abs Immat Gran (auto) Absolute Neuts (auto) Absolute Nucleated RBC Nucleated RBC % Sodium 137 Potassium 3.7 Chloride 106 Carbon Dioxide 26 Anion Gap 5 L BUN 17 D Creatinine 0.80 Estim Creat Clear Calc 104 Estimated GFR > 60 Glucose 130 H Lactic Acid 2.0 Calcium 7.9 L Magnesium 1.9 Total Bilirubin 0.6 AST 37 ALT 55 H Alkaline Phosphatase 66 Total Protein 6.0 L Albumin 3.5 Lipase 37 TSH (Reflex) 0.992 05/09/22 06:14 WBC 12.4 H RBC 4.86 Hgb 13.2 L D Hct 40.2 L MCV 82.7 MCH 27.2 MCHC 32.8 RDW 15.0 H Plt Count 207 MPV 10.8 H Immature Gran % (Auto) 0.3 Neut % (Auto) 79.5 H Lymph % (Auto) 8.1 L [place] % (Auto) 12.0 H Eos % (Auto) 0.0 Baso % (Auto) 0.1 L Lymph # (Auto) 1.01 [place] # (Auto) 1.5 H Eos # (Auto) 0.0 Baso # (Auto) 0.0 Abs Immat Gran (auto) 0.04 H Absolute Neuts (auto) 9.9 H Absolute Nucleated RBC 0.0 Nucleated RBC % 0.0 Sodium Potassium Chloride Carbon Dioxide Anion Gap BUN Creatinine Estim Creat Clear Calc Estimated GFR Glucose Lactic Acid Calcium Magnesium Total Bilirubin AST ALT Alkaline Phosphatase Total Protein Albumin Lipase TSH (Reflex) Discharge Plan Discharge Patient Disposition: Home, Self-Care Discharge Instructions: 3 times daily for 20 minutes each
[2022-05-09 09:25] VITALS: BP 130/82; PULSE 89; RESP 16; TEMP 36.7; O2SAT 98
[2022-05-09] MEDS: oxyCODONE HCL (*CRX) 2.5 MG TAB IR 7.5 MG PO (10:05)
--- NOTE | 2022-05-09 11:30 | PM.IMPN ---
Progress Note: A&P Assessment and Plan (1) S/P total knee arthroplasty: Code(s): Z96.659 - Presence of unspecified artificial knee joint Status: Acute Assessment and Plan: Postop care per orthopedic physician PT OT ordered DVT prophylaxis Xarelto Pain medications scheduled oxycodone, lyrica, meloxicam, PRN oxycodone and morphine Zofran and scopolamine ordered for nausea and vomiting Weight bearing status full weight bearing (2) Chronic GERD: Code(s): K21.9 - Gastro-esophageal reflux disease without esophagitis Status: Acute Assessment and Plan: Add protonix for now since omeprazole is non-formulary (3) Hypertension: Code(s): I10 - Essential (primary) hypertension Status: Acute Assessment and Plan: Continue with metoprolol BP 151/89 Time Spent With Patient Time: 27 minutes Time with patient: Greater than 35 minutes Subjective Date/time seen: 05/09/22 1130 Interval history: 05/09/22 113 Patient was sitting on the side of the bed. He did not have any complaint. He denied any chest pain, shortness of breath, weakness or fatigue. The RN was behind me about to discharge him. Went over his labs. Answered all questions. Patient is stable for discharge per hospitalist service. 05/08/22 Gurjit Angel is a 61 year old male who continued to have anterior, medial, and posterior knee pain to the right knee.? The pain was worse with activity.? The patient has failed outpatient conservative treatment options.? The patient has had arthroscopic surgeries in the past.? The patient had a right total knee arthroplasty today per Dr. Mary.? Please see operative note.? Estimated blood loss is 200 mL.? The patient was sitting up in the chair when I saw him he was complaining a postop nausea.? A scopolamine patch had been placed.? The hospitalist group add been asked to consult for medical management on the date of service of 05/08/2022. Review of Systems Review of Systems: All systems reviewed & are unremarkable except as noted in HPI and below Exam Narrative: General: well-nourished, well-appearing 61-year-old male, sitting up in bed, comfortable, NARD Neuro: awake, alert and oriented x4, speech clear, no focal neuro deficits noted HEENMT: normocephalic, atraumatic, EOMI, sclerae anicteric, moist oral mucosa Respiratory: Clear to auscultation bilaterally without crackles, rhonchi or wheezes, nonlabored breathing Cardio: regular rate, regular rhythm with S1-S2 Abdomen: nondistended, normoactive bowel sounds, soft, nontender to palpation Extremities: no edema, erythema, or tenderness to palpation, DP pulses 2+ bilaterally, right knee with dressing clean dry and intacted Skin: no rashes or lesions, warm and dry Psych: appropriate mood and affect, judgment and insight intact Objective Data Vital Signs Vital Signs: Vital Signs - 24 hr 05/08/22 10:06 05/08/22 10:20 05/08/22 10:35 Temperature 99.5 F Pulse Rate 83 88 91 Respiratory Rate 10 L 12 14 Blood Pressure 135/80 147/92 H 165/87 H Pulse Oximetry 97 98 100 Oxygen Delivery Simple Face Mask Simple Face Mask Simple Face Mask Oxygen Flow Rate 8 8 6 05/08/22 10:50 05/08/22 11:05 05/08/22 11:20 Temperature Pulse Rate 98 96 96 Respiratory Rate 12 12 12 Blood Pressure 166/99 H 158/94 H 158/94 H Pulse Oximetry 96 94 94 Oxygen Delivery Room Air Nasal Cannula Nasal Cannula Oxygen Flow Rate 2 2 05/08/22 11:35 05/08/22 11:35 05/08/22 11:50 Temperature 97 F L Pulse Rate 97 96 94 Respiratory Rate 12 16 Blood Pressure 134/90 154/98 H Pulse Oximetry 95 94 Oxygen Delivery Nasal Cannula Oxygen Flow Rate 2 05/08/22 13:31 05/08/22 12:25 05/08/22 13:25 Temperature 97 F L 97 F L Pulse Rate 94 95 Respiratory Rate 16 16 Blood Pressure 154/98 H 154/98 H Pulse Oximetry 93 95 Oxygen Delivery Room Air Oxygen Flow Rate 05/08/22
== END 2022-05-09 11:25 | disposition home or self-care (01) ==
LOC: ANHSURGERY 10:03 → ANH3MEDSUR 11:42
PROVIDERS: Nurse Practitioner; PCP Family Medicine; Visit Provider Orthopaedic Surgery
PROC: (CPT 27447; principal; 2022-05-08 07:30)
DX: M17.11 Unilateral primary osteoarthritis, right knee (principal); R11.2 Nausea with vomiting, unspecified; K21.9 Gastro-esophageal reflux disease without esophagitis; I10 Essential (primary) hypertension; F41.9 Anxiety disorder, unspecified; Z79.01 Long term (current) use of anticoagulants; Z79.890 Hormone replacement therapy
CPT/HCPCS: 27447; 36415; 73560; 80053; 80307; 82040; 82565; 82947; 83036; 83605; 83690; 83735; 84443; 85025; 86850; 86900; 86901; 87081; 97110; 97116; 97161; 97165; 97530; 97535; A9270; C1713; C1776; J0171; J0330; J0690; J1100; J1170; J1885; J2250; J2270; J2405; J2704; J2795; J3010; J7030; J7120

== ENCOUNTER 2023-11-22 11:48 | Outpatient (CLI) | payer OTHER, SELFPAY ==
--- NOTE | 2023-11-22 13:00 | ECG_ITS ---
Test Date: 2023-11-22 13:16:34 Measurements Intervals Mode Rate: 76 P: 47 VA: 160 QRS: -3 QRSD: 107 T: 39 QT: 339 QTc: 382 Interpretive Statements SINUS RHYTHM MINIMAL VOLTAGE CRITERIA FOR LVH, CONSIDER NORMAL VARIANT [MEETS CRITERIA IN ONE OF: R(aVL), S(V1), R(V5), R(V5/V6)+S(V1)] NONSPECIFIC T-WAVE ABNORMALITY No previous ECG available for comparison Electronically Signed On 11-22-2023 13:36:23 CDT by Ferny Rodriguez M.D.
[2023-11-22 13:26] LABS: Basophils Absolute Auto 0.1 K/mm3 (0.0-0.1); Basophils Percent Auto 0.4 % (0.2-1.2); Eosinophils Absolute Auto 0.1 K/mm3 (0-0.3); Eosinophils Percent Auto 0.4 % (0-4.4); Hematocrit 51.5 % (42.0-52.0); Immature Granulocyte Absolute 0.06 K/mm3 (0.00-0.031); Immature Granulocyte Percent A 0.5 % (0-0.5); Lymphocytes Absolute Auto 2.26 K/mm3 (0.9-3.2); Lymphocytes Percent Auto 17.3 % (18.3-44.2); Mean Corpuscular Hemoglobin 26.9 pg (26-34); Mean Corpuscular Volume 81.6 fl (80-100); Monocytes Absolute Auto 1.2 K/mm3 (0.1-0.6); Monocytes Percent Auto 9.3 % (2.6-8.5); Neutrophils Absolute Auto 9.4 K/mm3 (1.3-6.7); Neutrophils Percent Auto 72.1 % (45.5-73.1); Platelet Count Result 322 k/mm3 (150-375); Red Blood Count 6.31 M/mm3 (4.6-6.20); Red Cell Distribution Width 16.3 % (11.5-14.5); White Blood Count 13.1 K/mm3 (4.5-10.0)
[2023-11-22 13:43] LABS: Alanine Aminotransferase 44 U/L (6-50); Albumin Level 4.2 g/dL (3.5-5.1); Alkaline Phosphatase 84 U/L (38-126); Anion Gap 9 mmol/L (4-12); Aspartate Amino Transferase 34 U/L (17-59); Bilirubin,Total 0.9 mg/dL (0.2-1.3); Blood Urea Nitrogen 26 mg/dL (9-20); Calcium 9.5 mg/dL (8.4-10.2); Carbon Dioxide 23 mmol/L (22-30); Chloride 105 mmol/L (98-107); Estimated Glomerular Filt Rate > 60; Glucose 109 mg/dL (65-110); Potassium 4.4 mmol/L (3.4-5.0); Sodium 137 mmol/L (137-145)
[2023-11-22 13:43] LABS: Prothrombin Time 13.5 Seconds (11.1-14.7)
[2023-11-22 14:22] LABS: Add Urine Microscopic? YES; Appearance Urine Cloudy (Clear); Bacteria Urine None Seen /hpf; Bilirubin Urine 1+ (Negative); Blood Urine Negative (Negative); Calcium Oxalate Crystals Urine Present /hpf; Color Urine Dark Yellow (Yellow); Glucose Urine UA Negative (Negative); Ketones Urine Trace mg/dL (Negative); Leukocyte Esterase Ur Negative LEU/UL (Negative); Mucus Urine Present /lpf; Need Manual Microscopic Reviewed; Nitrate Urine Negative (Negative); Non Pathogenic Casts 0-2; Protein Urine Trace mg/dL (Negative); RBC Urine 0-2 /hpf (0-2); Specific Grav Ur 1.034 (1.001-1.035); Squamous Epithelial Cell Urine None Seen /hpf (Few); WBC Urine 0-5 /hpf (0-3); pH Urine 5.5 (5.0-9.0)
== END 2023-11-22 11:49 | disposition home or self-care (01) ==
PROVIDERS: PCP Family Medicine; Visit Provider Urology
DX: Z01.818 Encounter for other preprocedural examination (principal); C61 Malignant neoplasm of prostate; R94.31 Abnormal electrocardiogram [ECG] [EKG]
CPT/HCPCS: 36415; 80053; 81001; 85025; 85610; 85730; 86850; 86900; 86901; 93005

== ENCOUNTER 2023-11-29 00:18 | Day surgery (SDC) | payer OTHER, SELFPAY ==
--- NOTE | 2023-11-20 07:54 | P.HP_ITS ---
H&P: HPI History of Present Illness Date/Time: 11/20/23 07:54 Chief Complaint: Prostate cancer Narrative: 63-year-old man originally found to have prostate cancer in October 2020 had a PSA of 4.3. At that time he had 5 of 12 cores with [place] grade group 1, representing in [facility] in low risk prostate cancer. On confirmatory biopsy in December 2021 he had only 3 of 12 cores with a similar [place] score. Patient has erectile dysfunction that response to intracorporeal injections. He desires to continue testosterone replacement therapy, adding to his decision now for definitive intervention with robotic prostatectomy and bilateral pelvic lymphadenectomy. He is aware of the risks including, but not limited to, adverse cardiopulmonary events, failure to control his cancer, rectal injury and urinary incontinence. Prostate volume by MRI was 47.7gm. Review of Systems Cardiovascular: Cardiovascular: Denies chest pain, Denies lightheadedness, Denies palpitations and Denies dyspnea Respiratory: Respiratory: Denies dyspnea Gastrointestinal: Gastrointestinal: Denies diarrhea, Denies nausea and Denies vomiting Genitourinary: Genitourinary: Denies hematuria and Denies dysuria Endocrine: Endocrine: Denies palpitations [facility] Past Medical History Medical History (Updated 11/20/23 @ 07:56 by Husam Maldonado MD) Anxiety BMI 36.0-36.9,adult Chronic GERD Degenerative arthritis of knee, bilateral Hypertension Osteoarthritis of right knee Surgical History Surgical History (Updated 07/04/22 @ 10:33 by Aly Brower MD) H/O eye surgery right lens implant after traumatic injury July 2021 H/O heart artery stent H/O knee surgery scope, waiting on records, Dr. Mary H/O neck surgery History of sinus surgery S/P total knee arthroplasty Right TKA on 05/08/2022 Family History Family History Mother Family history of diabetes mellitus in first degree relative Diabetes mellitus Cerebrovascular accident Social History Social History Social History: The patient lives with his . He has 5 children. He is retired. The patient stated that he smoked in grade school but quit in 7th grade. Code status full code Smoking packs per day: 0.5 Smoking cigarettes per day: 10.0 Years smoked: 4 Smoking pack-years: 2.00 Smoking status: Former smoker Tobacco type: cigarettes Second hand tobacco smoke exposure: No Additional smoking assessment comments: PT STAteS QUIT SMOKING 7TH GRADE, DENIES FORMS OF TOBACCO USE Alcohol intake: never Substance use: never Substance use type: does not use Lack of Transportation: No Lack of Food: Never True Current Housing: I Have Housing Concerned About Future Housing: No Difficulty Paying Gas/Electric Bills: No Difficulty Paying for Meds: No Currently Unemployed: No Education: Trade/Vocational Certificate Difficulty w/ Childcare or Family Care: No Living arrangements: with family Occupation/Education: occupation 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 [employer] Gender identity (if verbalized by the patient): Male Spiritual care concerns: No Meds Home Medications and Allergies Home Medications Medication Instructions Recorded Confirmed Type atorvastatin 80 mg tablet 80 mg PO DAILY 01/28/20 07/04/22 History clonazepam 0.5 mg tablet 1.5 mg PO HS 01/28/20 07/04/22 History metoprolol succinate 25 mg 25 mg PO DAILY 01/28/20 07/04/22 History tablet,extended release 24 hr testosterone cypionate 100 mg/mL See Rx Instructions .Route .COMPLEX 01/28/20 07/04/22 History intramuscular oil (Depo-Testosterone) hydrocodone 5 mg-acetaminophen 325 1 tablet PO Q8H PRN Pain 05/24/21 07/04/22 History mg tablet nitroglycerin 0.4 mg sublingual 0.4 mg sublingual Q5M PRN Chest 05/24/21 07/04/22 History tablet Pain omeprazole 40 mg capsule,delayed 40 mg PO DAILY 05/24/21 07/04/22 History release rizatriptan 10 mg tablet 10 mg PO ONCE PRN Migraine Headache 05/24/21 07/04/22 History scopolamine base 1 mg over 3 days 1 patch transdermal Q3D PRN Nausea 05/24/21 07/04/22 History transdermal patch (Transderm-Scop) valacyclovir 1 gram tablet 1,000 mg PO DAILY PRN Cold Sores 05/24/21 07/04/22 History (Valtrex) meloxicam 15 mg tablet 15 mg PO DAILY PAIN 01/25/22 07/04/22 History pregabalin 75 mg capsule (Lyrica) 150 mg PO HS 01/25/22 07/04/22 History acetaminophen 500 mg tablet 1,000 mg PO QID PRN Pain 05/01/22 07/04/22 History ascorbic acid (vitamin C) 1,000 mg 1 g PO DAILY 05/01/22 07/04/22 History tablet (Vitamin C) cyclobenzaprine 10 mg tablet 10 mg TID PRN Muscle Spasm 05/01/22 07/04/22 History multivitamin 1 tablet PO DAILY 05/01/22 07/04/22 History tramadol 50 mg tablet 50 mg PO Q6H #30 tabs 06/12/22 07/04/22 Rx Allergies Allergy/AdvReac Type Severity Reaction Status Date / Time niacin Allergy Intermediate ITCHEY, Verified 07/04/22 09:49 TINGLIEY, FLUSHED RED HEAD TO TOE Exam Const: General: no acute distress Resp: Effort & Inspection: normal respiratory effort GI: Inspection: non-distended GI Palp: No abdominal tenderness and No Guarding due to palpation present (GI) Auscultation: normal bowel sounds Assessment and Plan Assessment and plan (1) Prostate cancer: Code(s): C61 - Malignant neoplasm of prostate Status: Acute Assessment and Plan: * Robotic assisted radical prostatectomy with bilateral pelvic lymphadenectomy
[2023-11-22 12:17] VITALS: BP 142/86; PULSE 96; RESP 16; TEMP 36.8; O2SAT 96; BMI 34.7
--- NOTE | 2023-11-22 12:43 | PC.NURSE ---
Report to the Outpatient Waiting Room, entrance under the green pavilion located off [facility], at time _06:00am__ on date _11/29/23 . Planned Procedure Time: __07:30am.? Time changes happen often and if your time is changed the preop area will call you the afternoon before. - You and your visitor will be asked to self-screen and do not enter if you have any COVID symptoms. Please call surgeon if you need to reschedule. - A mask is optional within the hospital at this time. Patients may have clear liquids (water, carbonated beverages, clear teas, apple juice) day before and prep per DR MALDONADO. - No food or drink midnight until time of surgery and no smoking Fleets enema prep as per Dr. Maldonado. Take only the following medications with a SIP of water on the morning of surgery: Hydrocodone as needed DO NOT STOP ANY OF YOUR OTHER PRESCRIPTION MEDICATIONS PRIOR TO SURGERY EXCEPT THE FOLLOWING Medications to discontinue per physician __Pt holding is ASPIRIN and Meloxicam 7 days prior Date to take last dose_11/21/23 Please no make-up, nail turkmen, hairspray, perfume, deodorant, or body powder the day of surgery.? No jewelry (including any body piercings) or valuables the day of surgery, leave them at home.? Please take a shower or bath the night before, or the morning of, surgery with an antibacterial soap.? Wear comfortable, loose fitting clothing.? - Jewelry must be removed prior to entering the operating room.? Rings and piercings that are not removed may be cut off. - The hospital will not accept responsibility for valuables.? - Please leave all valuables, including medications, at home the day of surgery. If you are going home after surgery, a licensed dedicated intermodal truck driver must drive you home.? - NO public transportation without another adult if you receive anesthesia. - We recommend that an adult stay with you for 24 hours following discharge. - We also recommend that you do not drive, make important decision, drink alcoholic beverages, or take any drugs that were not prescribed by your health care provider for at least 24 hours after your discharge time. Follow any additional instructions given to you from your surgeon. Telephone instructions given to __patient ___and asked if any additional questions and then verbalized understanding. Patient advised to call surgeon office or pre surgery nurse liaison [phone] if any additional questions.
[2023-11-29] VITALS (18 sets, daily range): BP systolic 126–178; BP diastolic 82–108; PULSE 73–96; RESP 11–22; TEMP 36.1–36.7; O2SAT 94–100
--- NOTE | ~2023-11-29 | XR_ITS ---
Clinical Indication: Surgery PA and lateral views of the chest: Comparison: None Findings: The lungs are clear, without evidence of focal consolidation or pleural effusion. Cardiome diastinal silhouette is within normal limits. Bones and soft tissues are unremarkable. Impression: Normal chest. Reviewed, dictated and finalized at location . Impression: Normal chest.
--- NOTE | 2023-11-29 06:11 | WPDHPUPDATE1 ---
History and Physical Update Update Date/Time: 11/29/23 06:11 History and Physical has been reviewed, including an updated exam of the patient. There are NO changes in the patient's condition. Risks, benefits, and alternatives have been discussed and questions answered. Patient agrees to proceed with procedure.
--- NOTE | 2023-11-29 06:51 | P.PNAN_ITS ---
Anes - Initial Pre Proc Eval Procedure: Operation Date: 11/29/23 07:30 Proposed Procedures p Robotic Assisted Laparoscopic Prostatectomy with Bilateral Pelvic Lymph Node Dissection - Husam Maldonado MD Date/Time: 11/29/23 06:51 Surgeon: Husam Maldonado MD Pre Op Diagnosis: Prostate Ca Patient Data Age: 63 Gender: M Height: 1.78 m Weight: 110 kg Last Vital Signs Temp 36.8 C 11/22/23 12:17 Pulse 96 11/22/23 12:17 Resp 16 11/22/23 12:17 BP 142/86 H 11/22/23 12:17 Pulse Ox 96 11/22/23 12:17 O2 Del Method Room Air 11/22/23 12:17 Allergies Allergy/AdvReac Type Severity Reaction Status Date / Time niacin Allergy Intermediate ITCHEY, Verified 11/22/23 12:07 TINGLIEY, FLUSHED RED HEAD TO TOE Home Medications Medication Instructions Recorded Confirmed Type atorvastatin 80 mg tablet 80 mg PO DAILY 01/28/20 11/22/23 History clonazepam 0.5 mg tablet 1.5 mg PO HS 01/28/20 11/22/23 History metoprolol succinate 25 mg 25 mg PO DAILY 01/28/20 11/22/23 History tablet,extended release 24 hr testosterone cypionate 100 mg/mL See Rx Instructions .Route .COMPLEX 01/28/20 11/22/23 History intramuscular oil (Depo-Testosterone) hydrocodone 5 mg-acetaminophen 325 1 tablet PO Q8H PRN Pain 05/24/21 11/22/23 History mg tablet nitroglycerin 0.4 mg sublingual 0.4 mg sublingual Q5M PRN Chest 05/24/21 11/22/23 History tablet Pain omeprazole 40 mg capsule,delayed 40 mg PO DAILY 05/24/21 11/22/23 History release rizatriptan 10 mg tablet 10 mg PO ONCE PRN Migraine Headache 05/24/21 11/22/23 History scopolamine base 1 mg over 3 days 1 patch transdermal Q3D PRN Nausea 05/24/21 11/22/23 History transdermal patch (Transderm-Scop) valacyclovir 1 gram tablet 1,000 mg PO DAILY PRN Cold Sores 05/24/21 11/22/23 History (Valtrex) meloxicam 15 mg tablet 15 mg PO DAILY PAIN 01/25/22 11/22/23 History ascorbic acid (vitamin C) 1,000 mg 1 g PO DAILY 05/01/22 11/22/23 History tablet (Vitamin C) multivitamin 1 tablet PO DAILY 05/01/22 11/22/23 History Patient hx anesthesia problems: none Family hx anesthesia problems: none Results Review: All pre-operative results and documents have been reviewed as part of the pre- operative evaluation. [facility] Past Medical History Medical History (Updated 11/29/23 @ 06:52 by Cam Garcia MD) Anxiety BMI 36.0-36.9,adult CAD (coronary artery disease) Chronic GERD Degenerative arthritis of knee, bilateral Hypertension Osteoarthritis of right knee Prostate cancer Surgical History Surgical History H/O eye surgery right lens implant after traumatic injury July 2021 H/O heart artery stent H/O knee surgery scope, waiting on records, Dr. Mary H/O neck surgery History of sinus surgery S/P total knee arthroplasty Right TKA on 05/08/2022 Family History Family History Mother Family history of diabetes mellitus in first degree relative Diabetes mellitus Cerebrovascular accident Social History Social History Social History: The patient lives with his . He has 5 children. He is retired. The patient stated that he smoked in grade school but quit in 7th grade. Code status full code Smoking packs per day: 0.5 Smoking cigarettes per day: 10.0 Years smoked: 4 Smoking pack-years: 2.00 Smoking status: Former smoker Tobacco type: cigarettes Second hand tobacco smoke exposure: No Smoking end date: 03/09/79 Additional smoking assessment comments: Denies any nicotine Alcohol intake: never Alcohol use details: None since 1979 Substance use: never Substance use type: does not use Last use: 1979 Lack of Transportation: No Lack of Food: Never True Current Housing: I Have Housing Concerned About Future Housing: No Difficulty Paying Gas/Electric Bills: No Difficulty Paying for Meds: No Currently Unemployed: No Education: Trade/Vocational Certificate Difficulty w/ Childcare or Family Care: No Living arrangements: with family Additional living arrangements comments: Occupation/Education: occupation 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 Informed Consent: The patient's anesthetic plan and its attendant risks and benefits were discussed with the patient/family/POA. Questions were solicited and answers provided to the satisfaction of the patient/family/POA.
[2023-11-29] MEDS: LACTATED RINGERS 1,000 ML 30 ML IV CONT ×3 (07:00→11:53)
[2023-11-29] MEDS: ceFAZolin 2 GM/D5W 50 ML 2 GM/50 ML BAG IVPB (07:23)
--- NOTE | 2023-11-29 10:26 | P.OP_ITS ---
Procedure Note - Detailed Date of Procedure 11/29/23 Pre-op Diagnosis Prostate Ca Post-op Diagnosis Same Procedure Performed Robotic assisted radical prostatectomy Surgeon Husam Maldonado MD Anesthesia General Description of Procedure The patient was brought to the operative suite, where he was prepped and draped in routine sterile fashion while in a dorsal lithotomy, deep Trendelenburg position. A supraumbilical 10 mm trocar was placed after insufflation of the abdomen with a Veress needle. Three robotic ports were then placed under direct vision. Two of these were placed in the right lower quadrant - 10 cm and 20 cm lateral to, and in line with, the umbilicus. A third robotic trocar was placed 10 cm to the left of the umbilicus, and 20 cm to the left of the umbilicus, a 12 mm standard laparoscopic trocar was placed to be used as an commercial lines account assistant port. Lastly, a 5 mm trocar was placed in the left upper quadrant midway between the umbilicus and the left robotic trocar. Attention was then turned to the prostatectomy. I opted for a posterior approach in this patient. An incision was made in the parietal peritoneum along the posterior bladder/posterior prostate about 2 cm above the reflection of the peritoneum over the anterior rectum. The seminal vesicles and vas deferens were immediately identified. Dissection is undertaken in a fashion so as to avoid electrocautery as much as possible, particularly near the tips of the seminal vesicles. Dissection was also carried out in the midline so as to avoid any encounters with the ureters. The vas deferens and the seminal vesicles were dissected in their entirety to the base of the prostate. The plane anterior to Denoviller's fascia, anterior to the rectum and posterior to the prostate was then developed. I then dropped the bladder by incising the anterior parietal peritoneum just lateral to the median umbilical ligaments bilaterally. The bladder was dropped from the anterior abdominal and pelvic wall. The endopelvic fascia was identified and incised bilaterally, allowing for dissection of the posterior- lateral aspect of the prostate. The puboprostatic ligaments were transected near their origin from the posterior pubic ramus. This posterior lateral dissection of the prostate is also undertaken in a fashion so as to avoid electrocautery as much as possible. The dorsal vein of the penis is then secured with an 0 -Vicryl ligature. Attention is then turned to the bladder neck. The anterior bladder neck is incised at the vesico-prostatic junction. The previously placed urethral catheter was drawn through the urethrotomy. A very small bladder neck was maintained throughout the remainder of this dissection. The posterior bladder neck was incised in a fashion so as to avoid any injury to the ureteral orifices. Again, the small aperture of the bladder neck was maintained. The previously dissected vas deferens and the seminal vesicles were brought through the posterior bladder neck incision. The lateral prostatic pedicles were then carefully dissected from the lateral aspect of the prostate bilaterally. The prostatic pedicles were secured with Weck clips and transected. The neurovascular bundles were carefully dissected from the posterior-lateral aspect of the prostate. The dorsal vein of the penis was incised with electrocautery. Using cold scissors, the urethra was incised. After withdrawing the previously placed urethral catheter, the posterior urethra was sharply incised, as was the rectalurethralis muscle. Bulmaro nomogram Pradaxa potential of lymph node involvement less than 1% so I opted against pelvic lymphadenectomy. The prostate, seminal vesicles and pelvic nodes were then placed in a specimen bag. The pelvis was copiously irrigated with saline. Urethrovesical anastomosis was then undertaken using similar two 3-0 V-lock sutures across a 20-Latvian urethral catheter. The catheter was irrigated, and there was found to be no evidence of an irrigant extravasation. I opted not to place a pelvic drain. The robot is undocked, and the trocars were removed. The specimen was removed through the supraumbilical incision. The anterior rectus fascia at that suprapubic site was closed with a looped 0- PDS. Subcutaneous tissue was irrigated. Skin incisions were closed with 4-0 Vicryl subcuticular. Blood loss throughout this was 300cc. The patient tolerated the procedure well, was taken to recovery room in good condition. Estimated Blood Loss 300 Drains Yes (18F Bolden catheter) Packing Yes Pathology Yes Complications No immediate complications Condition Stable Disposition PACU
[2023-11-29] MEDS: fentaNYL CITRATE INJ (*CRX) 100 MCG/2 ML VIAL 25 MCG IV PUSH ×8 (11:02→12:07)
[2023-11-29] MEDS: KETOROLAC 30 MG/ML VIAL (*BKC) IV PUSH ×2 (11:04→17:02)
[2023-11-29] MEDS: LABETALOL HCL INJ 100 MG/20 ML VIAL 10 MG IV PUSH (11:53)
[2023-11-29] MEDS: LACTATED RINGERS 1,000 ML 125 ML IV CONT ×2 (12:59→21:14)
[2023-11-29] MEDS: HYDROcodone/acetaminophen (*CRX) 5-325 MG TABLET 2 TAB PO ×2 (13:00→21:15)
--- NOTE | 2023-11-29 13:04 | ADMGEN ---
This patient, Gurjit Anegl, was admitted to [facility] Surg Room 310-01. Patient/family oriented to hospital policies and general routines including ID bracelet, bed and alarms, visiting hours, pain management, procedures, bathroom and other care routines, personal items, smoking policy, room service/diet, and visiting hours. Information on how to activate the Rapid Response Team has been discussed. Patient/Family are encouraged to report perceived risks to care and to ask questions if they do not understand what they are told or what they should do.
[2023-11-29] MEDS: HYOSCYAMINE SULFATE 0.125 MG TABLET SUBLINGUAL (21:15)
[2023-11-30 00:11] VITALS: BP 133/76; PULSE 84; RESP 18; TEMP 36.6; O2SAT 97
[2023-11-30 04:23] VITALS: BP 125/73; PULSE 71; RESP 20; TEMP 36.3; O2SAT 96
[2023-11-30] MEDS: LACTATED RINGERS 1,000 ML 125 ML IV CONT (06:02)
[2023-11-30 06:41] LABS: Hematocrit 44.9 % (42.0-52.0); Hemoglobin 14.3 g/dL (14.0-18.0)
[2023-11-30 07:00] LABS: Anion Gap 4 mmol/L (4-12); Blood Urea Nitrogen 21 mg/dL (9-20); Calcium 7.7 mg/dL (8.4-10.2); Carbon Dioxide 29 mmol/L (22-30); Chloride 104 mmol/L (98-107); Estimated CRCL calculation 90 ml/min; Estimated Glomerular Filt Rate > 60; Glucose 89 mg/dL (65-110); Potassium 4.1 mmol/L (3.4-5.0); Sodium 137 mmol/L (137-145)
--- NOTE | 2023-11-30 07:14 | P.PNUR_ITS ---
Progress Note: A&P Assessment and Plan (1) Prostate cancer: Code(s): C61 - Malignant neoplasm of prostate Status: Acute Assessment and Plan: * Doing well POD #1 * Ambulate, increased diet * Anticipate discharge this afternoon Subjective Subjective Date/Time Seen: 11/30/23 07:14 Interval history: Comfortable, passing gas - no complaints Review of Systems Cardiovascular: Cardiovascular: Denies chest pain, Denies lightheadedness, Denies palpitations and Denies dyspnea Respiratory: Respiratory: Denies dyspnea Gastrointestinal: Gastrointestinal: Denies diarrhea, Denies nausea and Denies vomiting Genitourinary: Genitourinary: Denies hematuria and Denies dysuria Endocrine: Endocrine: Denies palpitations Exam Const: General: no acute distress Resp: Effort & Inspection: normal respiratory effort GI: Inspection: non-distended GI Palp: No abdominal tenderness and No Guarding due to palpation present (GI) Auscultation: normal bowel sounds Urinary Catheter: Urinary Catheter: patent and draining and urine clear Objective Data Vital Signs Vital Signs: Vital Signs - 24 hr 11/29/23 10:37 11/29/23 10:47 11/29/23 10:51 Temperature 97.5 F L Pulse Rate 74 78 Respiratory Rate 18 12 Blood Pressure 164/102 H 170/96 H Pulse Oximetry 100 100 100 Oxygen Delivery Simple Face Mask Simple Face Mask Simple Face Mask Oxygen Flow Rate 6 6 6 11/29/23 11:05 11/29/23 11:20 11/29/23 11:36 Temperature Pulse Rate 82 82 90 Respiratory Rate 14 13 11 L Blood Pressure 170/100 H 164/101 H 178/108 H Pulse Oximetry 100 100 100 Oxygen Delivery Simple Face Mask Simple Face Mask Room Air Oxygen Flow Rate 6 6 11/29/23 11:53 11/29/23 11:50 11/29/23 12:05 Temperature Pulse Rate 90 88 88 Respiratory Rate 14 14 Blood Pressure 172/106 H 155/82 H Pulse Oximetry 98 94 Oxygen Delivery Room Air Room Air Oxygen Flow Rate 11/29/23 12:20 11/29/23 12:35 11/29/23 12:43 Temperature 97.3 F L 97.3 F L Pulse Rate 90 91 93 Respiratory Rate 14 14 20 Blood Pressure 167/92 H 154/98 H 156/91 H Pulse Oximetry 95 97 95 Oxygen Delivery Room Air Room Air Oxygen Flow Rate 11/29/23 12:58 11/29/23 13:28 11/29/23 14:28 Temperature 97.3 F L 97.8 F 97.8 F Pulse Rate 93 96 94 Respiratory Rate 20 20 20 Blood Pressure 156/90 H 154/94 H 150/93 H Pulse Oximetry 95 95 95 Oxygen Delivery Oxygen Flow Rate 11/29/23 18:28 11/29/23 20:00 11/30/23 00:11 Temperature 97 F L 98.0 F 97.8 F Pulse Rate 92 88 84 Respiratory Rate 20 22 H 18 Blood Pressure 150/90 H 126/82 133/76 Pulse Oximetry 95 95 97 Oxygen Delivery Oxygen Flow Rate 11/29/23 20:00 11/30/23 04:23 Temperature 97.4 F L Pulse Rate 84 71 Respiratory Rate 18 20 Blood Pressure 125/73 Pulse Oximetry 97 96 Oxygen Delivery Room Air Oxygen Flow Rate Intake/Output Intake/Output: Intake & Output 11/27/23 11/28/23 11/29/23 11/30/23 23:59 23:59 23:59 23:59 Intake Total 2990 1250 Output Total 455 500 Balance 2535 750 Meds/Results Medications: Active Medications Generic Name Dose Route Start Last Admin Trade Name Freq PRN Reason Stop Dose Admin Hydrocodone Bitart/Acetaminophen 2 tab 11/29/23 12:43 11/29/23 21:15 Hydrocodone/Acetaminophen (*Crx) 5-325 Mg Tablet PO 2 tab Q6H PRN Administration Pain Rated 4-6 Atorvastatin Calcium 80 mg 11/30/23 09:00 Atorvastatin 40 Mg Tablet PO DAILY ARABELLA Clonazepam 1.5 mg 11/29/23 21:00 11/30/23 00:00 Clonazepam (*Crx) 0.5 Mg Tablet PO Not Given HS ARABELLA Hyoscyamine 0.125 mg 11/29/23 12:43 11/29/23 21:15 Hyoscyamine Sulfate 0.125 Mg Tablet SUBLINGUAL 0.125 mg Q4H PRN Administration Bladder Spasm Lactated Ringer's 1,000 mls @ 125 mls/hr 11/29/23 12:43 11/30/23 06:02 Lr - Lactated Ringers Iv IV CONT 125 mls/hr .Q8H ARABELLA Administration Ketorolac Tromethamine 30 mg 11/29/23 12:43 11/29/23 17:02 Ketorolac 30 Mg/Ml Vial (*Bkc) IV PUSH 11/30/23 12:42 30 mg Q6H PRN Administration Pain Rated 4-6 Levofloxacin 500 mg 11/30/23 09:00 Levofloxacin 500 Mg Tablet PO DAILY [facility] Metoprolol Succinate 25 mg 11/30/23 09:00 Metoprolol Succinate Ext Rel 25 Mg Tabcr PO DAILY [facility] Naloxone HCl 0.1 mg 11/29/23 12:43 Naloxone Hcl 0.4 Mg/Ml Vial IV PUSH Q2M PRN Opiate Reversal Nitroglycerin 0.4 mg 11/29/23 12:43 Nitroglycerin Sl 0.4 Mg Tablet SUBLINGUAL Q5M PRN Chest Pain Ondansetron HCl 4 mg 11/29/23 12:43 Ondansetron Inj 4 Mg/2 Ml Vial IV PUSH Q6H PRN Nausea And Vomiting Pantoprazole Sodium 40 mg 11/30/23 09:00 Pantoprazole 40 Mg Tablet PO QAM [facility] Rizatriptan Benzoate 10 mg 11/29/23 12:43 Rizatriptan Benzoate 10 Mg Odt PO ONCE PRN Migraine Headache Scopolamine 1 patch 11/29/23 12:43 Scopolamine 1 Mg Patch TRANSDERM Q3D PRN Nausea Radiology Results: ITS Impressions Chest X-Ray 11/29/23 07:06 Impression: Normal chest. Labs Labs: Laboratory Results - last 24 hr 11/30/23 06:22 Hgb 14.3 Hct 44.9 Sodium 137 Potassium 4.1 Chloride 104 Carbon Dioxide 29 Anion Gap 4 BUN 21 H Creatinine 0.90 Estim Creat Clear Calc 90 Estimated GFR > 60 Glucose 89 Calcium 7.7 L
--- NOTE | 2023-11-30 10:00 | PC.NURSE ---
called Dr. Maldonado's office to aks question regarding patient discharge. Spoke with someone working in office. awaiting call back as patient has questions
[2023-11-30] MEDS: PANTOPRAZOLE 40 MG TABLET PO (10:02)
[2023-11-30] MEDS: levoFLOXacin 500 MG TABLET PO (10:02)
[2023-11-30 10:28] VITALS: BP 128/78; PULSE 74; RESP 19; TEMP 36.4; O2SAT 97
--- NOTE | 2023-11-30 10:57 | WPDANESPN ---
Anes - Prog Note Post-Op Date/Time: 11/30/23 10:57 Cardiovascular status: normal Respiratory status: normal Airway patency: baseline Mental status: baseline Post-Op hydration status: normal Vital Signs: Last Vital Signs Temp 36.3 C L 11/30/23 04:23 Pulse 71 11/30/23 04:23 Resp 20 11/30/23 04:23 BP 125/73 11/30/23 04:23 Pulse Ox 96 11/30/23 04:23 O2 Del Method Room Air 11/29/23 20:00 O2 Flow Rate 6 11/29/23 11:20 Pain Score (VAS): 03/31 I/O: Intake & Output 11/29/23 11/30/23 11/30/23 23:59 07:59 15:59 Intake Total 1860 1250 240 Output Total 375 500 Balance 1485 750 240 Laboratory Tests 11/30/23 06:22 11/30/23 06:22 11/30/23 06:22 Hgb 14.3 Hct 44.9 Sodium 137 Potassium 4.1 Chloride 104 Carbon Dioxide 29 Anion Gap 4 BUN 21 H Creatinine 0.90 Estim Creat Clear Calc 90 Estimated GFR > 60 Glucose 89 Calcium 7.7 L Post-procedural complaints: none Patient Feedback: Patient satisfied with anesthetic care.
--- NOTE | 2023-11-30 11:26 | P.DS_ITS ---
DS: Admitting Diagnosis Discharge Date 11/30/2023 Admitting Diagnosis Prostate cancer DS: Discharge Diagnosis Discharge Diagnosis (1) Prostate cancer: Code(s): C61 - Malignant neoplasm of prostate Status: Acute DS: Summary Hospital Course Hospital Course: This patient was admitted on the morning of his planned robotic prostatectomy. This procedure was uneventful, as was his postoperative course. By the evening of the procedure he was sitting at the bedside in tolerating a liquid diet. The following morning he was ambulating freely and tolerating regular food. His catheter drainage remained essentially clear throughout. His postoperative hem oglobin and serum creatinine were unremarkable. At the time of discharge he has been instructed in appropriate care for his Bolden catheter with both a leg bag and bedside bag. He will be discharged with plans to follow-up in 1 week with a cystogram. Time Spent with Patient Time attestation: Total time spent providing and/or coordinating discharge services: DS: Data Data Completed and Pending Pending studies at discharge: Pending at discharge 11/29/23 10:26 Surgical [PTH] Routine Labs on day of discharge: Labs from last 24 hours 11/30/23 06:22 Hgb 14.3 Hct 44.9 Sodium 137 Potassium 4.1 Chloride 104 Carbon Dioxide 29 Anion Gap 4 BUN 21 H Creatinine 0.90 Estim Creat Clear Calc 90 Estimated GFR > 60 Glucose 89 Calcium 7.7 L Discharge Plan Discharge Patient Disposition: Home, Self-Care Discharge Instructions: 1) Bolden catheter -> leg bag / bedside bag at night. 2) No lifting/straining >15lbs. x3 weeks. 3) No driving x1-week. 4) Resume normal, pre-operative diet. 5) My office will contact regarding follow-up in 1-week with cystogram. Stand Alone Forms: General Discharge Instructions Discharge Orders: Discharge Order (Routine); Ordered 11/30/23 Ordered By: Husam Maldonado Discharge Medications: New hydrocodone-acetaminophen 5-325 mg tablet 1 - 2 tablet PO Q6H PRN (Reason: pain) Qty: 24 0RF ciprofloxacin HCl 500 mg tablet 500 mg PO Q12H Qty: 10 0RF hyoscyamine sulfate 0.125 mg tablet 0.125 mg PO Q6H PRN (Reason: bladder spasms) Qty: 20 2RF docusate sodium [Colace] 100 mg capsule 100 mg PO DAILY Qty: 30 0RF Continued metoprolol succinate 25 mg tablet extended release 24 hr 25 mg PO DAILY atorvastatin 80 mg tablet 80 mg PO DAILY testosterone cypionate [Depo-Testosterone] 100 mg/mL oil See Rx Instructions .ROUTE .COMPLEX Patient Comments: TAKES ON SUNDAY Rx Instructions: 50 MG IM EVERY WEEK per pt clonazepam 0.5 mg tablet 1.5 mg PO HS hydrocodone-acetaminophen 5-325 mg tablet 1 tablet PO Q8H PRN (Reason: Pain) Hold Instructions: Resume on 05/23/22. Do not take while you have the oxycodone omeprazole 40 mg capsule,delayed release(DR/EC) 40 mg PO DAILY nitroglycerin 0.4 mg tablet, sublingual 0.4 mg sublingual Q5M PRN (Reason: Chest Pain) Rx Instructions: do not exceed 3 doses per episode rizatriptan 10 mg tablet 10 mg PO ONCE PRN (Reason: Migraine Headache) Rx Instructions: as a single dose scopolamine base [Transderm-Scop] 1 mg over 3 days patch 3 day 1 patch transdermal Q3D PRN (Reason: Nausea) valacyclovir [Valtrex] 1 gram tablet 1,000 mg PO DAILY PRN (Reason: Cold Sores) meloxicam 15 mg tablet 15 mg PO DAILY Hold Instructions: Resume on 05/23/22. Do not take while you are on the Xarelto Patient Comments: pt to hold for 7 prior last dose 11/21/23 multivitamin Tablet 1 tablet PO DAILY Held ascorbic acid (vitamin C) [Vitamin C] 1,000 mg Tablet 1 g PO DAILY Hold Instructions: Resume on 12/03/23.
== END 2023-11-30 12:15 | disposition home or self-care (01) ==
LOC: ANHSURGERY 05:52 → ANH3MEDSUR 12:39
PROVIDERS: PCP Family Medicine; Visit Provider Urology
PROC: 0VT04ZZ Resection of Prostate, Percutaneous Endoscopic Approach (ICD-10-PCS; CPT 55867; principal; 2023-11-29 07:30)
DX: C61 Malignant neoplasm of prostate (principal); N42.31 Prostatic intraepithelial neoplasia; N40.2 Nodular prostate without lower urinary tract symptoms; N52.9 Male erectile dysfunction, unspecified; I10 Essential (primary) hypertension; I25.10 Atherosclerotic heart disease of native coronary artery without angina pectoris; F41.9 Anxiety disorder, unspecified; K21.9 Gastro-esophageal reflux disease without esophagitis; M17.11 Unilateral primary osteoarthritis, right knee; E66.9 Obesity, unspecified; Z68.33 Body mass index [BMI] 33.0-33.9, adult; Z79.891 Long term (current) use of opiate analgesic; Z98.890 Other specified postprocedural states; Z98.1 Arthrodesis status; Z95.5 Presence of coronary angioplasty implant and graft; Z87.891 Personal history of nicotine dependence; Z82.49 Family history of ischemic heart disease and other diseases of the circulatory system
CPT/HCPCS: 55866; 36415; 71046; 80048; 80053; 81001; 85014; 85018; 85025; 85610; 85730; 86850; 86900; 86901; 88309; 93005; A9270; J0690; J1100; J1885; J2250; J2405; J2704; J3010; J7030; J7120

== ENCOUNTER 2023-12-07 11:25 | Outpatient (CLI) | payer OTHER, SELFPAY ==
--- NOTE | ~2023-12-07 | XR_ITS ---
EXAMINATION: CYSTOGRAM DATE: 12/07/2023 11:56 INDICATION: Prostate cancer post prostatectomy TECHNIQUE: Initial director hr communications radiograph of the pelvis was performed. There was retrograde administration of Omnipaque 350 mixed with saline contrast into patient's existing Bolden catheter. Fluoroscopic susan ges of the pelvis were obtained. A post-void image was also performed. Fluoroscopy exposure time was 0.6 minutes. A total of 9 fluoroscopic images were obtained. Total DAP was 16.073 mGycm^2 FINDINGS: Normal smooth mucosal contour to the bladder. No evident extraluminal contrast extravasatio n to suggest bladder leak. IMPRESSION: No bladder leak. Reviewed, dictated and finalized at location A. IMPRESSION: No bladder leak.
== END 2023-12-07 11:26 | disposition home or self-care (01) ==
PROVIDERS: PCP Family Medicine; Visit Provider Urology
DX: C61 Malignant neoplasm of prostate (principal)
CPT/HCPCS: 51600; 74430; Q9967